=== PATIENT | male | born 1950 | race Caucasian/White ===

== ENCOUNTER 2016-12-24 05:09 | Observation (INO) | payer MEDICARE, OTHER ==
[2016-12-23 19:39] LABS: A/G RATIO 1.2 (0.7-1.9); ALBUMIN 4.1 G/DL (3.5-5.0); ALKALINE PHOSPHATASE 102 U/L (45-117); BUN (BLOOD UREA NITROGEN) 10 MG/DL (6-23); CALCIUM, SERUM 9.4 MG/DL (8.5-10.4); CHLORIDE, SERUM 105 MMOL/L (96-112); CO2 (CARBON DIOXIDE) 26 MMOL/L (24-34); CREATININE 0.64 MG/DL (0.70-1.30); GFR AFRICAN AMERICAN 118 ML/MIN (>=60); GFR NON AFRICAN AMERICAN 102 ML/MIN (>=60); GLOBULIN 3.3 G/DL (2.5-4.1); GLUCOSE, SERUM 106 MG/DL (60-99); POTASSIUM, SERUM 4.1 MMOL/L (3.5-5.3); SGOT(AST) 13 U/L (5-40); SGPT(ALT) 18 U/L (5-65); SODIUM, SERUM 142 MMOL/L (135-148); TOTAL BILIRUBIN 1.6 MG/DL (0-1.2); TOTAL PROTEIN 7.4 G/DL (6.0-8.5)
--- NOTE | ~2016-12-24 | HP ---
History And Physical [id number] [place]. [address] NAME: DARIANA HERNANDEZ : [birth year] STATUS : ADM Guero PAT#: [id number] AGE: 65 ADM/REG DATE : 12/24/16 MR#: [id number] REPORT SERV DATE: 12/24/16 DICTATED BY: RICHARD DREW DATE: 12/24/16 REPORT STATUS : Draft TRANSCRIBED BY: MODL DATE: 12/24/16 DATE OF ADMISSION: 12/24/2016 CHIEF COMPLAINT: Dyspnea. HISTORY OF PRESENT ILLNESS: The patient is a 65-year-old man with a longstanding history of an ischemic cardiomyopathy, EF 25%. He has had two weeks of worsening symptoms of cough and dyspnea. He finally presented to his primary care provider and ultimately to the emergency room for further evaluation. He was found to be in congestive heart failure with a moderate sized right pleural effusion, BNP of 700. He has not had any chest pain. He has not had any syncope or presyncope. PAST MEDICAL HISTORY: 1. Coronary artery disease. 2. Chronic systolic congestive heart failure. 3. Ischemic cardiomyopathy, EF 25%. 4. Hypertension. 5. Hypercholesterolemia. 6. Type 2 diabetes. SOCIAL HISTORY: He does not smoke or drink alcohol. FAMILY HISTORY: There is no family history of early coronary artery disease. REVIEW OF SYSTEMS: A complete review of systems was obtained, which is negative in detail except as mentioned above in the HPI. ALLERGIES: NO KNOWN DRUG ALLERGIES. MEDICATIONS: Include aspirin 81 mg daily, Dulcolax, Coreg 25 mg twice a day, Zetia 10 mg daily, Lasix 20 mg in the morning, Glucotrol, Prinivil 10 mg daily, nitroglycerin as needed, Effient 10 mg daily, Pravachol 80 mg daily and Aldactone 25 mg a day. PHYSICAL EXAMINATION: BLOOD PRESSURE: 140/66. HEART RATE: 70. RESPIRATORY RATE: 14. GENERAL: Comfortable, in no acute distress. HEENT: Anicteric. No xanthelasma. Lips without cyanosis. NECK: No JVD. Carotids 2+ and symmetric. No carotid bruits. LUNGS: There is dullness to percussion and auscultation at the left base. There are mild crackles on the right base. COR: RRR. Normally placed PMI. Normal S1 and S2. No murmurs, rubs or gallops. ABD: Soft, nontender, nondistended. Normal bowel sounds. No abdominal bruits. EXT: No clubbing, cyanosis or edema 2+ and symmetric distal pulses. SKIN: Warm. Dry. No venous stasis changes. History And Physical [address] [place]. [address] NAME: DARIANA HERNANDEZ : [birth year] STATUS : ADM Guero PAT#: [id number] AGE: 65 ADM/REG DATE : 12/24/16 MR#: [id number] REPORT SERV DATE: 12/24/16 DICTATED BY: RICHARD DREW DATE: 12/24/16 REPORT STATUS : Draft TRANSCRIBED BY: ARACELI DATE: 12/24/16 MS: No kyphosis. NEURO/PSYCH: Oriented x3. No anxiety or depression. LABORATORY STUDIES: Sodium of 144, potassium of 4.2, creatinine of 0.55, hematocrit of 41.8, troponin 0.18, BNP of 696. EK-lead EKG shows sinus rhythm, 81 beats per minute. Left ventricular hypertrophy pattern noted. Lateral T-wave inversions noted. IMPRESSION: This is a 65-year-old man with an ischemic cardiomyopathy, EF 25%. Admitted with an acute on chronic exacerbation of systolic congestive heart failure. He has a number of comorbid factors including type 2 diabetes and coronary artery disease. His ICD was interrogated and there have been no recent an arrhythmias. I think some of this may have to do with dietary and salt and fluid indiscretion. I will have the heart failure service come by and educate the patient and his family about appropriate measures. We will plan on diuresis and checking a troponin to rule out myocardial infarction. WW/ARACELI Richard Drew M.D. / [id number] CC: Guera Shelton M.D.
[2016-12-24 05:14] LABS: BASOPHILS 0.2 %; BASOPHILS ABSOLUTE 0.01 10/3/uL (0.0-0.16); EOSINOPHILS 1.7 %; EOSINOPHILS ABSOLUTE 0.11 10/3/uL (0.0-0.53); HEMATOCRIT 41.8 % (40.0-51.0); IMMATURE GRANULOCYTES 0.3 %; IMMATURE GRANULOCYTES ABSOLUTE 0.02 10/3/uL (0.0-0.11); LYMPHOCYTES 18.5 %; LYMPHOCYTES ABSOLUTE 1.17 10/3/uL (0.67-4.30); MEAN CORPUS HGB CONC 33.5 g/dL (32.0-36.0); MEAN CORPUSCULAR HEMOGLOB 31.4 pg (26.0-34.0); MEAN CORPUSCULAR VOLUME 93.7 fL (80-100); MEAN PLATELET VOLUME 11.4 fL (9.2-13.0); MONOCYTES 11.2 %; MONOCYTES ABSOLUTE 0.71 10/3/uL (0.21-1.20); NEUTROPHILS 68.1 %; NEUTROPHILS ABSOLUTE 4.32 10/3/uL (2.02-8.40); PLATELET COUNT 177 10/3/uL (150-400); RBC DISTRIBUTION WIDTH 13.7 % (12.0-16.0); RED CELL COUNT 4.46 10/6/uL (4.7-6.1); WHITE BLOOD CELLS 6.3 10/3/uL (4.5-10.5)
[2016-12-24 05:16] LABS: ER CBC TAT 0 Hrs 06 MinsNP; MANUAL DIFF NO %
[2016-12-24 05:20] LABS: INTERNATIONAL NORMAL RATI 1.3 UNITS (-); PARTIAL THROMBO TIME 28.6 SEC (22.5-37.2); PROTIME (NOT ORD) 16.1 SEC (12.0-14.5)
[2016-12-24 05:31] LABS: BUN (BLOOD UREA NITROGEN) 11 MG/DL (6-23); CALCIUM, SERUM 8.8 MG/DL (8.5-10.4); CHLORIDE, SERUM 109 MMOL/L (96-112); CO2 (CARBON DIOXIDE) 25 MMOL/L (24-34); CREATININE 0.55 MG/DL (0.70-1.30); GFR AFRICAN AMERICAN 126 ML/MIN (>=60); GFR NON AFRICAN AMERICAN 109 ML/MIN (>=60); GLUCOSE, SERUM 150 MG/DL (60-99); POTASSIUM, SERUM 4.2 MMOL/L (3.5-5.3); SODIUM, SERUM 144 MMOL/L (135-148)
[2016-12-24 05:32] LABS: CHEST PAIN PROFILE TAT 0 Hrs 24 Mins; TROPONIN I 0.18 NG/ML (<0.05)
[2016-12-24] MEDS ORDERED: EFFIENT10 PO (07:13)
[2016-12-24] MEDS ORDERED: PRIN10 PO (07:14)
[2016-12-24] MEDS ORDERED: GLUCOTROL5 PO (07:14)
[2016-12-24] MEDS ORDERED: PRAVACHOL80 MG PO (07:14)
[2016-12-24] MEDS ORDERED: COREG25 PO (07:15)
[2016-12-24] MEDS ORDERED: L40 PO (07:15)
[2016-12-24] MEDS ORDERED: SPIRO25 PO (07:15)
[2016-12-24] MEDS ORDERED: ASAB PO (07:15)
[2016-12-24] MEDS ORDERED: ZETIA PO (07:15)
[2016-12-24] MEDS ORDERED: NITROSTAT0.4 MG PO (07:16)
[2016-12-24] MEDS ORDERED: BIST PO (07:17)
[2016-12-25 04:42] LABS: CALCIUM, SERUM 8.8 MG/DL (8.5-10.4); CHLORIDE, SERUM 105 MMOL/L (96-112); CO2 (CARBON DIOXIDE) 27 MMOL/L (24-34); CREATININE 0.61 MG/DL (0.70-1.30); GFR AFRICAN AMERICAN 121 ML/MIN (>=60); GFR NON AFRICAN AMERICAN 104 ML/MIN (>=60); GLUCOSE, SERUM 148 MG/DL (60-99); SODIUM, SERUM 142 MMOL/L (135-148)
[2016-12-25 04:43] LABS: BUN (BLOOD UREA NITROGEN) 17 MG/DL (6-23); POTASSIUM, SERUM 3.3 MMOL/L (3.5-5.3)
== END 2016-12-25 10:42 | disposition home or self-care (01) ==
LOC: ER 05:09 → CDU1 06:51
PROVIDERS: Family Medicine Adult Medicine; Internal Medicine; Specialist
DX: I11.0 Hypertensive heart disease with heart failure (principal); I50.23 Acute on chronic systolic (congestive) heart failure; I25.10 Atherosclerotic heart disease of native coronary artery without angina pectoris; E78.00 Pure hypercholesterolemia, unspecified; E11.9 Type 2 diabetes mellitus without complications; Z79.82 Long term (current) use of aspirin; Z79.899 Other long term (current) drug therapy
CPT/HCPCS: 71020; 80048; 80053; 82962; 83735; 83880; 84484; 85025; 85610; 85730; 93005; 94640; 96374; 96376; 99285; A9270-GY; G0378